=== PATIENT | female | born 1960 | race Caucasian/White ===

== ENCOUNTER → 2016-06-29 17:03 | Outpatient (CLI) | payer MEDICARE, BC ==
[2010-10-12 10:22] VITALS: BMI 27.2
== END | disposition home or self-care (01) ==
LOC: D.MAMMO 09:00
DX: R92.8 Other abnormal and inconclusive findings on diagnostic imaging of breast (principal)

== ENCOUNTER 2017-01-05 01:06 | Observation (INO) | payer MEDICARE, BC ==
[~2017-01-05] VITALS: Ht 154.9 cm; Wt 72.3 kg
--- NOTE | ~2017-01-05 | HEMODYNAMI ---
PATIENT:YE MYLES MEDICAL RECORD: [id number] : 60 LOCATION:[facility] D.2115 ADMISSION DATE: 01/05/17 Generatedon:01/05/20179:14 Patient name: YE MYLES Patient #: [id number] SSN: : 1960 Date of study: 01/05/2017 Page: Of Hemodynamic Procedure Report Patient Data Patient Demographics Procedure consent was obtained First Name: YE Gender: Female Last Name: SHAR : 1960 [facility] Initial: TR Age: 56 year(s) Patient #: [id number] Race: Unknown Additional ID: [id number] Contact details [address]: [address] [place] [address] rd State: [place] City: [place] Zip code: [address] Past Medical History Allergies Allergen Reaction Date Comments Reported Iodine 01/05/2017 Penicillins 01/05/2017 Sulfa drugs 01/05/2017 Admission Admission Data Admission Date: 01/05/2017 Admission Time: 2:29 Room #: D.2115 Lab Results Lab Result Date: 01/05/2017 Lab Result Time: 0:00 Biochemistry Name Units Result Min Max BUN mg/dl 10 --(-*--)-- 7 18 Creatinine mg/dl 0.9 --(-*--)-- 0.6 1.3 CBC Name Units Result Min Max Hemoglobin g/dl 13.7 --(*---)-- 13.5 17.5 Procedure Procedure Types Cath Procedure Diagnostic Procedure LHC LHC w/Coronaries Miscellaneous Procedures Moderate Sedation up to 15 minutes Procedure Description Procedure Date Procedure Date: 01/05/2017 Procedure Start Time: 9:05 Procedure End Time: 9:10 Procedure Staff Name Function Jaspal Artis MD Performing Physician Joshua Villalpando RN Nurse Dominique Henley RT Scrub Brad Fabian RT Monitor Procedure Data Cath Procedure Fluoroscopy Diagnostic fluoroscopy Total fluoroscopy Time: 0.7 time: 0.7 min min Diagnostic fluoroscopy Total fluoroscopy dose: 144 dose: 144 mGy mGy Contrast Material Contrast Material Type Amount (ml) Isovue 300 29 Entry Location Entry Primary Successful Side Size Upsize Upsize Entry Closure Foss ccessful Closure Location (Fr) 1 (Fr) 2 (Fr) Remarks Device Remarks Radial Right 6 Fr Mechanical artery Short Compression Diagnostic catheters Device Type Used For End Catheter Placement Diagnostic Terumo 5Fr LV Angiography [place] 110cm catheter Procedure Complications No complications Procedure Medications Medication Administration Route Dosage Oxygen NC 2 l/min Heparin Flush Bag added to field 2 bags (1000units/500ml NS) 0.9% NaCl I.V. 100 ml/hr Fentanyl I.V. 50 mcg Versed I.V. 1 mg Radial Cocktail added to field 1 syringe (Verapomil 2mg/Nitro 400mcg/Heparin 1500units) Fentanyl I.V. 50 mcg Versed I.V. 1 mg Radial Cocktail I.A. 1 syringe (Verapomil 2mg/Nitro 400mcg/Heparin 1500units) Fentanyl I.V. 50 mcg Hemodynamics Rest HGB: 13.7 (g/dl) Heart Rate: 80 (bpm) Snapshots Pre Cath Intra NCS Post Cath Vital Signs Time Heart Resp SPO2 NIBP (mmHg) Rhythm Pain Sedation Rate (ipm) (%) Status Level (bpm) 8:53:55 76 18 99 150/89(128) NSR 0 (11) 10(A) , No pain 8:58:09 81 17 99 157/90(121) NSR 0 (11) 10(A) , No pain 9:02:31 70 16 97 128/71(92) NSR 0 (11) 10(A) , No pain 9:06:47 80 17 96 118/61(91) NSR 0 (11) 9(A) , No pain 9:12:46 81 16 93 104/68(96) NSR 0 (11) 9(A) , No pain Medications Time Medication Route Dose Verified Delivered Reason Notes E ffectiveness by by 8:54:46 Oxygen NC 2 l/min Joshua Lewis Per Kwasi Villalpando RN physician RN 8:54:56 Heparin Flush added 2 bags Joshua Lewis used for Bag to Kwasi Villalpando dishwasher busser (1000units/500ml field RN NS) 8:55:06 0.9% NaCl I.V. 100 Joshua Lewis Per ml/hr Kwasi Villalpando RN physician RN 9:03:03 Fentanyl I.V. 50 mcg Joshua Lewis for sedation Kwasi Villalpando RN RN 9:03:09 Versed I.V. 1 mg Joshua Joshua for sedation Kwasi Villalpando RN RN 9:04:29 Radial Cocktail added 1 Joshua Lewis used for (Verapomil to syringe Kwasi Villalpando RN procedure 2mg/Nitro field RN 400mcg/Heparin 1500units) 9:05:15 Fentanyl I.V. 50 mcg Joshua Merchanty for sedation Kwasi Villalpando RN RN 9:05:20 Versed I.V. 1 mg Joshua Lewis for sedation Kwasi Villalpando RN RN 9:06:16 Radial Cocktail I.A. 1 Joshua Coperey for (Verapomil syringe Kwasi Artis MD vasodilation 2mg/Nitro RN 400mcg/Heparin 1500units) 9:07:11 Fentanyl I.V. 50 mcg Joshua Lewis for sedation Kwasi Villalpando RN silk screen etcher Log Time Note 8:30:23 Brad Fabian RT(R) sent for patient. Start room use. 8:30:24 Time tracking: Regular hours 8:30:29 Plan of Care:Hemodynamics will remain stable., Cardiac rhythm will remain stable., Comfort level will be maintained., Respiratory function will remain adequate., Patient/ family verbilizes understanding of procedure., Procedure tolerated without complication., Recovers from procedure without complications.. 8:45:48 Patient received from PCU to [facility] 2 Alert and oriented. Tansferred to table in Supine position. 8:45:49 Warm blankets applied, and inocente hugger turned on for patient comfort. 8:45:49 Correct patient and procedure confirmed by team. 8:45:50 Signed procedure consent form obtained from patient. 8:45:51 ECG and BP/O2 sat monitors applied to patient. 8:45:52 Full Disclosure recording started 8:52:00 Vital chart was started 8:54:46 Oxygen 2 l/min NC was administered by Joshua Villalpando RN; Per physician; 8:54:56 Heparin Flush Bag (1000units/500ml NS) 2 bags added to field was administered by Joshua Villalpando RN; used for procedure; 8:55:06 0.9% NaCl 100 ml/hr I.V. was administered by Joshua Villalpando RN; Per physician; 8:58:05 Baseline sample Acquired. 8:58:09 Rhythm: sinus rhythm 8:58:21 H&P Date Dictated: 01/05/2017 Within 30 days and on chart.. 8:58:21 Pre-procedure instructions explained to patient. 8:58:22 Pre-op teaching completed and patient verbalized understanding. 8:58:23 Family unavailable. 8:58:25 Patient NPO since Midnight. 8:58:32 Patient allergic to Iodine 8:58:42 Patient allergic to Penicillins 8:58:46 Patient allergic to Sulfa drugs 8:58:48 Is the patient allergic to Iodine/contrast media? No. 8:58:53 Is patient on blood thinner?No 8:58:54 Patient diabetic? Yes. 8:58:56 If diabetic: On Metformin? No 8:58:57 ----Pre-sedation anethsthesia assessment.---- 8:59:00 Previous problem with sedation/anesthesia? No ? 8:59:02 Snore? Yes 8:59:04 Sleep apnea? Yes 8:59:04 Deviated septum? No 8:59:06 Opens mouth fully? Yes 8:59:07 Sticks out tongue? Yes 8:59:10 Airway obstruction? No ? 8:59:15 Dentures? Yes upper in tight 8:59:25 Pre procedure: right dorsailis pedis pulse 1+ Palpable, but thready & weak; easily obliterated 8:59:28 Modified Jacek's test Ulnar > 7 seconds. 8:59:30 Patient pain scale 0/10 ?. 8:59:35 IV patent on arrival in right hand with 0.9% NaCl at 10ml/hr. 9:01:45 Lab Result : BUN 10 mg/dl 9:01:45 Lab Result : Creatinine 0.9 mg/dl 9:01:45 Lab Result : Hemoglobin 13.7 g/dl 9:01:47 Lab results completed and on chart. 9:01:50 Right Radial & Right Groin area was prepped with chlora-prep and draped in sterile fashion 9:01:51 Alarms reviewed by R. N. 9:01:51 Sharps counted by scrub and verified by R.N. 9:01:52 --------ALL STOP TIME OUT------ 9:01:52 Final Timeout: patient, procedure, and site verified with staff and physician. All members of the team are in agreement. 9:01:54 Right Radial & Right Groin site verified by team. 9:01:56 Physical assessment completed. ASA score P 2 - A patient with mild systemic disease as per Jaspal Artis MD. 9:02:00 Sedation plan: IV Moderate Sedation Versed, Fentanyl 9:02:24 Use device set Radial Dx 9:02:25 Acist Syringe opened to sterile field. 9:02:25 Medline Cath Pack opened to sterile field. 9:02:26 Bag Decanter opened to sterile field. 9:02:26 Terumo 6Fr Slender Glidesheath opened to sterile field. 9:02:27 St Dutch 260cm J .035 wire opened to sterile field. 9:02:27 Acist Hand Control opened to sterile field. 9:02:27 Acist Manifold opened to sterile field. 9:02:28 Tegaderm 4 x 4 opened to sterile field. 9:02:28 MBrace Wrist Support opened to sterile field. 9:03:03 Fentanyl 50 mcg I.V. was administered by Joshua Villalpando RN; for sedation; 9:03:09 Versed 1 mg I.V. was administered by Joshua Villalpando RN; for sedation; 9:03:20 Zero performed for pressure channel P1 9:04:29 Radial Cocktail (Verapomil 2mg/Nitro 400mcg/Heparin 1500units) 1 syringe added to field was administered by Joshua Villalpando RN; used for procedure; 9:05:15 Fentanyl 50 mcg I.V. was administered by Joshua Villalpando RN; for sedation; 9:05:20 Versed 1 mg I.V. was administered by Joshua Villalpando RN; for sedation; 9:05:34 Procedure started. 9:05:51 Local anesthetic to right radial artery with Lidocaine 2% by Jaspal Artis MD.INITIAL ACCESS ONLY 9:05:59 A 6 Fr Short sheath was inserted into the Right Radial artery 9:06:16 Radial Cocktail (Verapomil 2mg/Nitro 400mcg/Heparin 1500units) 1 syringe I.A. was administered by Jaspal Artis MD; for vasodilation; 9:06:57 IV Extension Set opened to sterile field. 9:07:06 A Diagnostic Terumo 5Fr [place] 110cm catheter was advanced over the wire and used for LV Angiography. 9:07:11 Fentanyl 50 mcg I.V. was administered by Joshua Villalpando RN; for sedation; 9:07:11 LV angiography performed. 9:07:13 LV gram done using ORTIZ 9:07:18 Injector settings: Ml/sec: 5, Volume: 15, 9:07:37 EF : 60 % 9:07:39 LCA angiography performed. 9:08:13 RCA angiography performed. 9:08:15 Catheter removed. 9:08:27 Terumo TR Band Standard opened to sterile field. 9:08:38 Contrast amount:Isovue 300 29ml. 9:08:44 Sheath removed intact; hemostasis achieved with Mechanical Compression to the Right Radial artery. 9:08:45 Procedure ended.(Physican Out) 9:08:58 Fluoroscopy time 00.70 minutes. 9:09:02 Fluoroscopy dose: 144 mGy 9:: Flurop Dose total: 144 9:09:07 Sharps counted by scrub and verified by R.N. 9:09:09 TR band inflated with 10cc of air. 9:09:18 Post right radial artery:stable 9:09:19 Post Procedure Pulses reassessed and unchanged 9:09:22 Post procedure rhythm: sinus rhythm 9:09:23 Post procedure instruction explained to patient.Patient verbalizes understanding. 9:09:35 Procedure type changed to Cath procedure, Diagnostic procedure, LHC, LHC w/Coronaries, Miscellaneous Procedures, Moderate Sedation up to 15 minutes 9:09:39 Procedure and supply charges have been captured, reviewed, submitted and are correct. 9:10:00 Procedure Complication : No complications 9:10:02 Vital chart was stopped 9:10:03 See physician's report for complete and final results. 9:10:07 Report given to PCU. 9:10:14 Patient transfered to PCU with Stretcher. 9:10:16 Procedure ended. 9:10:16 Full Disclosure recording stopped 9:10:20 End room use (Document Last) 9:11:50 Vital chart was started 9:14:28 Vital chart was stopped Device Usage Item Name Manufacture Quantity Catalog Hospital Part Current Minimal Lot# / Number Charge Number Stock Stock Serial# Code Acist Acist 1 23168 536359 426858 165274 20 Syringe Medical Systems Inc Medline Cardinal 1 [id number] 223156 82034 946647 5 Cath Pack Health Bag Microtek 1 2002S 342437 51590 870682 5 Decanter Medical Inc. Terumo 6Fr Terumo 1 [id number] 618889 189297 245120 [address] St Dutch 1 976302 990897 389036 864409 30 260cm J .035 wire Acist Hand Acist 1 09415 752769 787170 289380 5 Control Medical Systems Inc Acist Acist 1 88960 320717 625758 438349 5 Manifold Medical Systems Inc Tegaderm 4 3M 1 1626W 998550 237548 779395 5 x 4 MBrace Advanced 1 140-0250-00 871846 24826 725107 5 Wrist Vascular Support Dynamics IV Hospira 1 50902-90 994295 14697 045246 5 Extension Set Diagnostic Terumo 1 04-0385 378642 798799 481395 5 Terumo 5Fr [place] 110cm catheter Terumo TR Terumo 1 [id number]-[id number] 129723 338603 351657 40 Band Standard Signature Audit [place] Time Signature Unsigned Intra-Procedure 01/05/2017 Brad Fabian 9:14:24 AM RT(R) Signatures Monitor : Brad Fabian RT Signature : Date : Time : [facility] [address] [place] [address]
[2017-01-05 01:55] LABS: BASOPHILS 0.3 % (0-2); EOSINOPHILS 3.2 % (0-7); HEMATOCRIT 41.3 % (36.0-48.0); HEMOGLOBIN 13.7 g/dL (12-16); IMMATURE GRANULOCYTES 0.3 % (0-5); LYMPHOCYTES 28.4 % (15-50); MCH 30.2 pg (26.0-34.0); MCHC 33.2 g/dL (31.0-37.0); MEAN PLATELET VOLUME 9.9 fL (7.4-10.4); MONOCYTES 8.1 % (2-11); NEUTROPHILS 59.7 % (40-80); PLATELET COUNT 262 10x3/uL (130-400); RBC 4.54 10x6/uL (4.00-5.40); RDW 13.1 % (11.5-14.5); WBC 7.1 10x3/uL (4.8-10.8)
[2017-01-05 02:10] LABS: ALBUMIN 3.3 g/dL (3.4-5.0); ALKALINE PHOSPHATASE 101 U/L (46-116); ALT (SGPT) 50 U/L (10-68); CALC OSMOLALITY 283 mosm/kg (275-300); CALCIUM 8.6 mg/dL (8.5-10.1); CARBON DIOXIDE 27.3 mmol/L (21.0-32.0); CHLORIDE - SERUM 106 mmol/L (98-107); CREATININE - SERUM 0.9 mg/dL (0.6-1.3); GLUCOSE 134 mg/dL (74-106); POTASSIUM - SERUM 3.3 mmol/L (3.5-5.1); PROTEIN - SERUM 6.3 g/dL (6.4-8.2); SODIUM 142 mmol/L (136-145); UREA NITROGEN 10 mg/dL (7-18); eGFR NON AFRICAN AMERICAN 69 mL/min (90-120)
[2017-01-05 02:20] LABS: CHOL - HDL RATIO 3.2 ratio (2.3-4.1); CHOLESTEROL, TOTAL 159 mg/dL (0-200); CKMB 0.7 U/L (0.0-3.6); CREATINE KINASE 125 UL (21-215); HDL CHOLESTEROL 50 mg/dL (32-96); LDL CHOLESTEROL 85 mg/dL (0-100); LDL-HDL RATIO 1.7 ratio (1.5-3.5); TRIGLYCERIDE 122 mg/dL (30-200); TROPONIN-I < 0.017 ng/mL (0.000-0.060)
[2017-01-05 04:00] VITALS: BP 143/80; Ht 154.9 cm; Wt 72.3 kg
[2017-01-05] MEDS ORDERED: SEROQUEL100 MG PO (04:15)
[2017-01-05] MEDS ORDERED: RESTORIL15 MG PO (04:16)
[2017-01-05] MEDS ORDERED: DESERYL100 MG PO (04:16)
[2017-01-05] MEDS ORDERED: TIMOPTIC 0.5 % O5 ML EACH EYE (04:17)
[2017-01-05] MEDS ORDERED: ALPHAGAN P 0.155 ML EACH EYE (04:18)
--- NOTE | 2017-01-05 04:22 | NUR ---
ADMISSION COMPLETE PER FLOWSHEETS. VOICES NO CO AT TIME. WALLET TAKEN BY FRIEND AND PLACED IN VEHICLE.
--- NOTE | 2017-01-05 05:07 | NUR ---
WATCHING TV. VOICES NO CO AT TIME.
--- NOTE | 2017-01-05 05:57 | NUR ---
WATCHING TV VOICES NO CO AT TIME.
[2017-01-05 08:17] VITALS: BP 103/62
--- NOTE | 2017-01-05 08:38 | NUR ---
CONSENTS SIGNED. PRE-OPS GIVEN. TO BENCH SCIENTIST BY BED.
[2017-01-05 09:02] LABS: CALC OSMOLALITY 284 mosm/kg (275-300); CALCIUM 8.4 mg/dL (8.5-10.1); CARBON DIOXIDE 23.9 mmol/L (21.0-32.0); CHLORIDE - SERUM 107 mmol/L (98-107); CREATININE - SERUM 0.8 mg/dL (0.6-1.3); GLUCOSE 116 mg/dL (74-106); SODIUM 143 mmol/L (136-145); UREA NITROGEN 9 mg/dL (7-18); eGFR NON AFRICAN AMERICAN 78 mL/min (90-120)
[2017-01-05 09:06] LABS: POTASSIUM - SERUM 4.2 mmol/L (3.5-5.1)
[2017-01-05 09:21] LABS: BASOPHILS 0.4 % (0-2); EOSINOPHILS 2.7 % (0-7); HEMATOCRIT 40.4 % (36.0-48.0); HEMOGLOBIN 13.4 g/dL (12-16); IMMATURE GRANULOCYTES 0.1 % (0-5); LYMPHOCYTES 25.4 % (15-50); MCH 29.8 pg (26.0-34.0); MCHC 33.2 g/dL (31.0-37.0); MEAN PLATELET VOLUME 10.4 fL (7.4-10.4); MONOCYTES 7.3 % (2-11); NEUTROPHILS 64.1 % (40-80); PLATELET COUNT 270 10x3/uL (130-400); RBC 4.49 10x6/uL (4.00-5.40); RDW 13.2 % (11.5-14.5); WBC 7.7 10x3/uL (4.8-10.8)
--- NOTE | 2017-01-05 09:33 | NUR ---
BACK FRON TUNNEL MUCKER. VS WNL. RIGHT WRIST STABLE WITH TR BAND INTACT. WILL MONITOR.
--- NOTE | 2017-01-05 14:21 | NUR ---
TR BAND DCD WITHOUT BLEEDING OR HEMATOMA NOTED. IV AND TELEMETRY DCD. DC PLANS GIVEN. UNDERSTANDING VOICED.
--- NOTE | 2017-01-06 11:24 | OP ---
PATIENT NAME: YE MYLES MEDICAL RECORD: [id number] :60 LOCATION:D.M2 D.2115 ADMISSION DATE:01/05/17 SURGEON: JOSR POWELL MD DATE OF OPERATION: 01/05/2017 PROCEDURES: 1. Left heart catheterization. 2. Selective coronary angiography. 3. Left ventriculogram. INDICATION: Chest pain. PROCEDURE IN DETAIL: After informed consent was obtained and after a detailed explanation of risks, benefits as well as alternative therapies, the patient elected to proceed with angiogram and heart catheterization. The right radial area was prepped and draped in normal sterile fashion. Right radial artery was cannulated via modified Seldinger technique with placement of 5-Welsh sheath. All catheters exchanged through this sheath. FINDINGS: Left ventriculogram was performed in the standard 30-degree ORTIZ view reveals good cardiac wall motion throughout all segments. Overall ejection fraction estimated at 60%. SELECTIVE CORONARY ANGIOGRAPHY: Left main, left anterior descending, left circumflex, and right coronary artery are all smooth-walled vessels with no angiographic evidence of coronary artery disease. OVERALL IMPRESSION: 1. No angiographic evidence of coronary artery disease. 2. Normal left heart pressures. 3. Normal left ventricular systolic function. Chest pain is noncardiac in etiology. No further cardiac workup needs to be ascertained. TRANSINT:[id number] Voice Confirmation ID: [id number] DOCUMENT ID: [id number] JOSR POWELL MD at 1124 CC: [id number] DICTATION DATE: 01/05/17 0911 GRADUATE FELLOW: 01/05/17 1113 DIS IN 01/05/17 [address] [place] [address]
--- NOTE | 2017-01-06 11:24 | DS ---
PATIENT:YE MYLES :60 MEDICAL RECORD: [id number] DISCHARGE SUMMARY ADMISSION DATE: 01/05/17 DISCHARGE DATE: 01/05/17 DISCHARGE DIAGNOSES: 1. Chest pain of unknown etiology. 2. Normal cardiac catheterization this admission. HOSPITAL COURSE: Mrs. Myles presents with chest pain; however, cardiac catheterization is normal. Discharged home to follow up with her primary care physician for noncardiac chest pain workup. TRANSINT:[id number] Voice Confirmation ID: [id number] DOCUMENT ID: [id number] JOSR POWELL MD at 1124 CC: [id number] DICTATION DATE: 01/05/17 0910 GROUND INSTRUCTOR BASIC: 01/06/17 0203 DIS IN 01/05/17 [address] [place] [address]
== END 2017-01-05 14:29 | disposition home or self-care (01) ==
LOC: D.ER 01:06 → D.M2 02:29 → OBSVTIME 02:29 → D.M2 02:29
PROVIDERS: Emergency Medicine; ADMIT Internal Medicine Interventional Cardiology
DX: R07.89 Other chest pain (principal); I10 Essential (primary) hypertension; F41.9 Anxiety disorder, unspecified; F31.9 Bipolar disorder, unspecified; H40.9 Unspecified glaucoma

== ENCOUNTER → 2017-02-01 12:24 | Outpatient (CLI) | payer MEDICARE, BC ==
[2017-01-05 04:00] VITALS: BMI 30.1
[~2017-02-01 12:24] MED LIST: ALPHAGAN P 0.155 ML EACH EYE; DESERYL100 MG PO; RESTORIL15 MG PO; SEROQUEL100 MG PO; TIMOPTIC 0.5 % O5 ML EACH EYE
== END | disposition home or self-care (01) ==
LOC: D.RAD 01-26 13:00
DX: R13.10 Dysphagia, unspecified (principal)

== ENCOUNTER → 2017-06-22 12:50 | Outpatient (CLI) | payer MEDICARE, BC ==
[2017-01-05 04:00] VITALS: BMI 30.1
== END | disposition home or self-care (01) ==
LOC: D.CT 12:50
DX: S52.131A Displaced fracture of neck of right radius, initial encounter for closed fracture (principal); X58.XXXA Exposure to other specified factors, initial encounter; Y93.89 Activity, other specified; Y92.019 Unspecified place in single-family (private) house as the place of occurrence of the external cause

== ENCOUNTER 2017-12-27 21:47 | Emergency (ER) | payer MEDICARE, BC ==
[~2017-12-27] VITALS: Ht 154.9 cm; Wt 72.7 kg
[2017-12-27 21:53] VITALS: BP 135/86; Ht 154.9 cm; Wt 72.7 kg
== END 2017-12-27 23:03 | disposition left against medical advice (07) ==
LOC: D.ER 21:47
DX: Z02.9 Encounter for administrative examinations, unspecified (principal)

== ENCOUNTER → 2018-10-02 16:34 | Outpatient (CLI) | payer MEDICARE, BC ==
[2017-12-27 21:53] VITALS: BMI 30.3
== END | disposition home or self-care (01) ==
LOC: D.MAMMO 08:00
PROVIDERS: ATTEND Family Medicine
DX: Z12.31 Encounter for screening mammogram for malignant neoplasm of breast (principal)

== ENCOUNTER 2019-07-30 13:16 | Inpatient (IN) | payer MEDICARE, BC ==
[~2019-07-30] VITALS: Ht 154.9 cm; Wt 72.7 kg
[~2019-07-30 13:16] MED LIST changes: -DESERYL100 MG PO; +TRAZODONE HCL150 MG
[2019-08-06] MEDS ORDERED: XALATAN 0.0052.5 ML EACH EYE (14:27)
[2019-08-06] MEDS ORDERED: KLONOPIN1 MG PO (14:28)
[2019-08-06] MEDS ORDERED: HYDROCODON-ACE1 EAC7 PO (14:31)
[2019-08-06] MEDS ORDERED: TESSALON PERLE100 MG PO (14:32)
[2019-08-07] MEDS ORDERED: VOLTAREN100 GM TOPICAL (11:11)
[2019-08-07 11:16] LABS: BASOPHILS 0.3 % (0-2); EOSINOPHILS 0.7 % (0-7); HEMATOCRIT 45.7 % (36.0-48.0); IMMATURE GRANULOCYTES 0.3 % (0-5); LYMPHOCYTES 11.1 % (15-50); MCH 29.8 pg (26.0-34.0); MCHC 32.8 g/dL (31.0-37.0); MCV 90.7 fL (80.0-100.0); MONOCYTES 7.1 % (2-11); NEUTROPHILS 80.5 % (40-80); PLATELET COUNT 277 10x3/uL (130-400); RBC 5.04 10x6/uL (4.00-5.40); RDW 13.3 % (11.5-14.5); WBC 15.6 10x3/uL (4.8-10.8)
[2019-08-07 11:28] LABS: ANION GAP 9.1 mmol/L (8-16); CALCIUM 8.7 mg/dL (8.5-10.1); CARBON DIOXIDE 31.5 mmol/L (21.0-32.0); CREATININE - SERUM 1.1 mg/dL (0.6-1.3); POTASSIUM - SERUM 3.6 mmol/L (3.5-5.1)
[2019-08-07 12:04] LABS: APTT 30.4 SECONDS (22.8-39.4)
[2019-08-07 12:07] LABS: PROTIME 13.1 SECONDS (11.6-15.0)
[2019-08-07 12:39] LABS: BILIRUBIN NEGATIVE (NEGATIVE); GLUCOSE NEGATIVE (NEGATIVE); KETONE NEGATIVE (NEGATIVE); NITRITE NEGATIVE (NEGATIVE); UROBILINOGEN NORMAL (NORMAL)
[2019-08-07 12:40] LABS: BACTERIA FEW /hpf (NEGATIVE); EPITHELIAL CELLS 0-5 /hpf (0-5); RED CELLS - URINE 0-5 /hpf (0-5)
[2019-08-13] VITALS (14 sets, daily range): BP systolic 95–146; BP diastolic 50–81; Ht 154.9 cm; Wt 72.7 kg
[2019-08-13] MEDS ORDERED: RESTORIL15 MG (06:52)
[2019-08-13] MEDS ORDERED: CIPRO500 MG PO (06:53)
--- NOTE | 2019-08-13 07:23 | NUR ---
ACCORDING TO THE SUICIDE ASSESSMENT SCREEN THE PATIENT SCORES LOW AND DOES NOT REQUIRE A 1:1 OBSERVATION. SUICDE RESOURCE FLYER PROVIDED.
[2019-08-13 08:30] LABS: SPECIFIC GRAVITY 1.015 (1.005-1.020)
[2019-08-13 08:31] LABS: BACTERIA FEW /hpf (NEGATIVE); BILIRUBIN NEGATIVE (NEGATIVE); EPITHELIAL CELLS 0-5 /hpf (0-5); GLUCOSE NEGATIVE (NEGATIVE); KETONE NEGATIVE (NEGATIVE); NITRITE NEGATIVE (NEGATIVE); RED CELLS - URINE 0-5 /hpf (0-5); UROBILINOGEN NORMAL (NORMAL); WHITE CELLS - URINE RARE /hpf (NEGATIVE)
--- NOTE | 2019-08-13 11:08 | NUR ---
PT PLACED ON BEDPAN PER HER REQUEST
--- NOTE | 2019-08-13 11:30 | NUR ---
RECEIVED TO ROOM 1213 VIA BED FROM PACU. ROUSES TO VERBAL STIMULATION. ANSWERS QUESTIONS APPROPRIATELY. DRESSING TO RIGHT KNEE DRY AND INTACT. AT BEDSIDE. DENIES NEEDS.
--- NOTE | 2019-08-13 14:16 | MORECARE ---
CASE MANAGEMENT DISCHARGE SUMMARY PATIENT: YE TRAN UNIT: [id number] ADM DATE: 08/13/19 AGE: 58 : 60 SEX: F ROOM/BED: D.1213 AUTHOR: TAVON,DOC PHYSICIAN: REFERRING PHYSICIAN: AGUSTINA CUEVA DO DATE OF SERVICE: 08/13/19 Discharge Plan Patient Name: YE TRAN Facility: [facility]:[place] : 1960 Planned Disposition: Outpatient PT\OT Anticipated Discharge Date: Discharge Date: Expected LOS: Initial Reviewer: [email or web address] Initial Review Date: 08/13/2019 Generated: 08/13/19 3:16 pm Comments DCP- Discharge Planning Updated by [email or web address]: Rosario Beard on 08/13/19 1:[address] CM met with patient to discuss initial discharge planning. Patient is in agreement to proceed with the assessment with family members present. Patient reports that she lives at home independently with her spouse. Patient is alert/oriented. Stairs/steps: 5 w/rails. PCP: Dr. Lord. Pharmacy: [facility]. Patient states she has been able to obtain all of her prescribed medications. HHS: No. DME: Antony NESS BSC. Patient gives permission to speak with family members/care givers. Emergency contact: Hamzah Tran (spouse) [phone]. Patient is Independent with all ADL's, medication management 2ND PRESSMAN. CM discussed the availability of HH, Rehab, DME services. Patient plans to use [facility] upon DC. Patient states family members will drive her to and from therapy. Patient's ueiyqv-wd-tju lives next door and plans to assist when patient's spouse is working. Patient feels safe returning to previous environment. Patient denies being hospitalized within the past 30 days. Patient denies the use of community resources 2ND PRESSMAN. Transportation at time of discharge: Hamzah Tran (spouse) [phone]. CM will assist with any other DC needs/plans. DCPIA - Discharge Planning Initial Assessment Updated by [email or web address]: Rosario Beard on 08/13/19 2:10 pm * Is the patient Alert and Oriented? Yes * How many steps to enter\exit or inside your home? 5 w/rail * PCP Dr. lord * Pharmacy [facility]. * Preadmission Environment Home with Family * ADLs Independent * Equipment Bedside Commode * Other Equipment BSC, Walker, CPM * List name and contact numbers for known caregivers / representatives who currently or will assist patient after discharge: Hamzah tran (spouse) [phone] Janice Tran (s-I-l) [phone] * Verbal permission to speak to the caregivers and representatives has been obtained from the patient. Yes * Community resources currently utilized None * Please name any agencies selected above. [facility] * Additional services required to return to the preadmission environment? Yes * Can the patient safely return to the preadmission environment? Yes * Has this patient been hospitalized within the prior 30 days at any hospital? No Patient Name: YE TRAN Page [phone] at 1416 All edits/amendments must be made on the electronic document DICTATION DATE: 08/13/19 1416 HVAC SERVICE MANAGER: SATNAM 08/13/19 1416 RPT#: [id number] DC DATE: STATUS: ADM IN [facility] [address] [place] [address] END OF REPORT
--- NOTE | 2019-08-13 17:17 | MORECARE ---
CASE MANAGEMENT DISCHARGE SUMMARY PATIENT: YE TRAN UNIT: [id number] ADM DATE: 08/13/19 AGE: 58 : 60 SEX: F ROOM/BED: D.1213 AUTHOR: TAVON,SANDRA PHYSICIAN: REFERRING PHYSICIAN: AGUSTINA CUEVA DO DATE OF SERVICE: 08/13/19 Discharge Plan Patient Name: YE TRAN Facility: [facility]:[place] : 1960 Planned Disposition: Outpatient PT\OT Anticipated Discharge Date: Discharge Date: Expected LOS: Initial Reviewer: [email or web address] Initial Review Date: 08/13/2019 Generated: 08/13/19 6:16 pm Comments DCP- Discharge Planning Updated by [email or web address]: Rosario Beard on 08/13/19 4:[address] CM contacted Miranda with [facility], patient's appointment is Tuesday 08/15 @0930 am. Copy given to patient. DCP- Discharge Planning Updated by [email or web address]: Rosario Beard on 08/13/19 1:[address] CM met with patient to discuss initial discharge planning. Patient is in agreement to proceed with the assessment with family members present. Patient reports that she lives at home independently with her spouse. Patient is alert/oriented. Stairs/steps: 5 w/rails. PCP: Dr. Lord. Pharmacy: [facility]. Patient states she has been able to obtain all of her prescribed medications. HHS: No. DME: [facility], Antony, BSC. Patient gives permission to speak with family members/care givers. Emergency contact: Hamzah Tran (spouse) [phone]. 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 CM discussed the availability of HH, Rehab, DME services. Patient plans to use [facility] upon DC. Patient states family members will drive her to and from therapy. Patient's yyzhlc-gs-mdd lives next door and plans to assist when patient's spouse is working. Patient feels safe returning to previous environment. Patient denies being hospitalized within the past 30 days. 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 Transportation at time of discharge: Hamzah Tran (spouse) [phone]. CM will assist with any other DC needs/plans. DCPIA - Discharge Planning Initial Assessment Updated by [email or web address]: Rosario Beard on 08/13/19 2:10 pm * Is the patient Alert and Oriented? Yes * How many steps to enter\exit or inside your home? 5 w/rail * PCP Dr. lord * Pharmacy [facility]. * Preadmission Environment Home with Family * ADLs Independent * Equipment Bedside Commode * Other Equipment BSC, Walker, CPM * List name and contact numbers for known caregivers / representatives who currently or will assist patient after discharge: Hamzah tran (spouse) [phone] Janice Vinh (s-I-l) [phone] * Verbal permission to speak to the caregivers and representatives has been obtained from the patient. Yes * Community resources currently utilized None * Please name any agencies selected above. [facility] * Additional services required to return to the preadmission environment? Yes * Can the patient safely return to the preadmission environment? Yes * Has this patient been hospitalized within the prior 30 days at any hospital? No Coverage Notice Reviewer: [email or web address] - Rosario Beard Notice Issued Date-Time: 08/13/2019 17:11 Notice Type: Patient Choice Letter Notice Delivered To: Family Member Relationship to Patient: Spouse Salesperson [employer] Name: Hamzah Tran Delivery Method: HAND - Hand Delivered Jeanie Days: Prior Verbal Notification: Recipient Understood Notice: Yes Recipient Signature: Yes Med Rec Note Co-signed by Attending: Coverage Notice Comment: Patient Choice for [facility]. Appointment Tuesday 08/15 @0930. Last DP export: 08/13/19 1:16 pm Patient Name: YE TRAN Page 23071 at 1717 All edits/amendments must be made on the electronic document DICTATION DATE: 08/13/191715 KINESIOLOGY INTERNSHIP: SATNAM 08/13/191715 RPT#: [id number] DC DATE: STATUS: ADM IN [facility] [address] [place] [address] END OF REPORT
--- NOTE | 2019-08-13 18:21 | NUR ---
UP TO BR WITH ONE PERSON MIN ASSIST. VOIDED WITHOUT DIFFICULTY. REQUESTED AND GIVEN 5 MG OXY PO FOR C/O RIGHT KNEE PAIN LEVEL 10. WILL MONITOR. NO CHANGES NOTED. DENIES NEEDS. AT BEDSIDE.
--- NOTE | 2019-08-13 19:00 | NUR ---
ASSISTED PATIENT TO RESTROOM. PATIENT VOIDED. ASSISTED PATIENT BACK TO BED AND ON CPM. PATIENT DENIES OTHER NEEDS AT THIS TIME. BED IN LOWEST POSITION AND CALL LIGHT WITHIN REACH. ENCOURAGED THE PATIENT TO CALL IF SHE HAS NEEDS. WILL CONTINUE TO MONITOR.
--- NOTE | 2019-08-13 20:09 | NUR ---
ADMINISTERED MEDS PER ORDERS. PATIENT DENIES OTHER NEEDS AT THIS TIME. AT BEDSIDE. WILL CONTINUE TO MONITOR.
--- NOTE | 2019-08-13 22:17 | NUR ---
ASSISTED PATIENT TO AND FROM RESTROOM WITH WALKER. PATIENT RESTING IN BED AND DENIES OTHER NEEDS AT THIS TIME.
--- NOTE | 2019-08-13 23:04 | NUR ---
ASSISTED PATIENT TO AND FROM WITH WALKER. PATIENT VOIDED. PATIENT DENIES OTHER NEEDS AT THIS TIME.
--- NOTE | 2019-08-14 00:37 | NUR ---
PATIENT RESTING IN BED WITH EYES CLOSED AND NO S/S OF DISTRESS. BED IN LOWEST POSITION AND CALL LIGHT WITHIN REACH. WILL CONTINUE TO MONITOR.
--- NOTE | 2019-08-14 00:38 | NUR ---
I have reviewed this patient and I concur with the Shift Assessment completed by the Licensed Practical Nurse today this shift.
--- NOTE | 2019-08-14 00:54 | NUR ---
ASSISTED PATIENT TO AND FROM . PATIENT VOIDED AND DENIES OTHER NEEDS AT THIS TIME. WILL CONTINUE TO MONITOR.
[2019-08-14 03:17] VITALS: BP 109/55
--- NOTE | 2019-08-14 03:20 | NUR ---
ASSISTED PATIENT TO AND FROM . PATIENT NAUSEOUS AND VOMITING WHEN SHE GOT BACK TO BED. ADMINISTERED ZOFRAN.
--- NOTE | 2019-08-14 05:05 | NUR ---
PLACED PATIENT ON CPM MACHINE TO RIGHT KNEE
--- NOTE | 2019-08-14 08:34 | OP ---
PATIENT NAME: YE MYLES MEDICAL RECORD: [id number] :60 LOCATION:D. D.1213 ADMISSION DATE:08/13/19 SURGEON: YANIV CUEVA DO DATE OF OPERATION: 08/13/2019 PROCEDURE PERFORMED: Right total knee arthroplasty. PREOPERATIVE DIAGNOSIS: Right knee osteoarthritis. POSTOPERATIVE DIAGNOSIS: Right knee osteoarthritis. INDICATIONS: Ms. Myles is a 58-year-old female who has had right knee pain for quite some time. She has tried all manner of nonoperative treatment including injections and physical therapy to no avail. She was tired dealing with pain as it is affecting his activities of daily living. She wanted something done surgically. I informed her that total knee would work. She has tried everything else that she would be a risk for infection, bleeding, damage to nerves and vessels, need for further surgery, continued pain, loss of motion of the knee, blood clots, and even and she signed a consent as well as failure of implants and the fracture and she signed a consent. SURGEON: Yaniv Cueva DO SANDWICH PEDDLER: Darrin Hardy, certified surgical assistant product manager. He assisted with closing as well as retraction. The patient received a block by anesthesia in the preoperative area. She was taken to the OR suite, laid in supine position, given 900 mg clindamycin. She was then sedated and LMA was placed. She was prepped and draped in a sterile fashion. A timeout was performed, everyone was in agreement with the correct side, site, patient and procedure. We then began by marking out the incision and covering with non-ionized coverage of the skin with plastic sterilized and placed Ioban. We used 10 blade scalpel for skin dissection down to the capsule. A medial parapatellar approach was then used to enter the knee joint through the capsule. Patella was everted. Part of the fat pad was removed and patella was milled down to fit prosthesis. The distal femur was then entered and the ACL had been removed. The distal femur was entered with a drill. Distal femur guide was put on and the distal femur was cut through the guide and then cut through the proximal tibia as well through the guide and excess bone was removed and incised. I then brought the knee to extension and we removed the menisci and coagulated any bleeding that was in the knee with the Aquamantys. We then sized the femur to be 60. A 4-in-1 cutting block was then used to cut after the Dhruv wing was used to ensure there was no notching leave the 60 and cut through the guide and excess bone was removed and the trial was put on and tibia floated in and arranged, the rotation was marked. We then drilled the lug holes in the femur and holes for the patellar implant. After that, the tibia was exposed and sized to a 67. The 67 was reamed and then punched and the extra holes were put in the tibia for the cement. Cement was then prepped and cement was put in the tibia and all the implant impacted in place. Excess cement was removed. We then impacted the femur on, put a 10 poly in between and put in extension and used a cement, irrigated the patella, and then used cement on the patella and on the implant and squeezed it and excess cement was removed from that and held into place while the cement dried. We irrigated the knee with more than a liter of normal saline, did not use the iodine solution due to her ALLERGY TO IODINE. After the cement had dried, a try to slope, could not put the 12 standard poly OPERATIVE REPORT [id number] YE MYLES in, although 12 trial fit well, we put a 10 standard poly and after that, locked it into place using locking mechanism and then put in tobramycin and vancomycin powder as well as Yuri powder and closed the capsule with #2 Ethibond in a ctclar-fo-kquku fashion and the skin with 2-0 Vicryl interrupted fashion. ZipLine placed on the knee. Adaptic, 4 x 4s, ABD, Webril, Clifton wrap, and AIDAN hose stockings were placed up to the knee. She was then awakened and taken to recovery in stable condition. Blood loss was approximately 250 mL. COMPLICATIONS: None. TRANSINT:[id number] Voice Confirmation ID: [id number] DOCUMENT ID: [id number] YANIV CUEVA DO at 0834 CC: [id number] DICTATION DATE: 08/13/19 1018 ACTIVATED SLUDGE OPERATOR: 08/13/19 1853 ADM IN [facility] [address] [place] [address]
[2019-08-14 09:02] LABS: HEMATOCRIT 34.8 % (36.0-48.0); HEMOGLOBIN 11.2 g/dL (12-16); MCHC 32.2 g/dL (31.0-37.0); MCV 90.2 fL (80.0-100.0); MEAN PLATELET VOLUME 9.9 fL (7.4-10.4); RBC 3.86 10x6/uL (4.00-5.40); RDW 13.1 % (11.5-14.5)
[2019-08-14 09:24] LABS: WBC 15.1 10x3/uL (4.8-10.8)
[2019-08-14 09:38] VITALS: BP 132/57
--- NOTE | 2019-08-14 09:51 | NUR ---
PT ALERT X 4. BREATH SOUNDS CLEAR BILAT. IV TO LEFT HAND, PATENT, DRESSING CDI. DRESSING TO RIGHT KNEE CDI. AIDAN HOSE TO RIGHT LEG AND USING AT HOME SCD'S. PT REPORTING PAIN OF 8/10, BP IMPROVED AND MEDICATED PER ORDERS, WILL MONITOR. BED LOW, CALL LIGHT IN REACH. NO OTHER NEEDS AT THIS TIME.
[2019-08-14 11:06] VITALS: BP 116/56
--- NOTE | 2019-08-14 14:36 | MORECARE ---
CASE MANAGEMENT DISCHARGE SUMMARY PATIENT: YE TRAN UNIT: [id number] ADM DATE: 08/13/19 AGE: 58 : 60 SEX: F ROOM/BED: D.1213 AUTHOR: SANDRA MONTES DE OCA PHYSICIAN: REFERRING PHYSICIAN: AGUSTINA CUEVA DO DATE OF SERVICE: 08/14/19 Discharge Plan Patient Name: YE TRAN Facility: [facility]:[place] : 1960 Planned Disposition: Outpatient PT\OT Anticipated Discharge Date: Discharge Date: Expected LOS: Initial Reviewer: [email or web address] Initial Review Date: 08/13/2019 Generated: 08/14/19 3:36 pm DCP- Discharge Planning Updated by [email or web address]: Rosario Beard on 08/13/19 4:[address] CM contacted Miranda with [facility], patient's appointment is Tuesday 08/15 @0930 am. Copy given to patient. DCP- Discharge Planning Updated by [email or web address]: Rosario Beard on 08/13/19 1:[address] CM met with patient to discuss initial discharge planning. Patient is in agreement to proceed with the assessment with family members present. Patient reports that she lives at home independently with her spouse. Patient is alert/oriented. Stairs/steps: 5 w/rails. PCP: Dr. Lord. Pharmacy: [facility]. Patient states she has been able to obtain all of her prescribed medications. HHS: No. DME: [facility]y [facility], [place]. Patient gives permission to speak with family members/care givers. Emergency contact: Hamzah Tran (spouse) [phone]. 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 CM discussed the availability of HH, Rehab, DME services. Patient plans to use [facility] upon DC. Patient states family members will drive her to and from therapy. Patient's [id number]-znk lives next door and plans to assist when patient's spouse is working. Patient feels safe returning to previous environment. Patient denies being hospitalized within the past 30 days. 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 Transportation at time of discharge: Hamzah Tran (spouse) [phone]. CM will assist with any other DC needs/plans. DCPIA - Discharge Planning Initial Assessment Updated by [email or web address]: Rosario Beard on 08/13/19 2:10 pm * Is the patient Alert and Oriented? Yes * How many steps to enter\exit or inside your home? 5 w/rail * PCP Dr. lord * Pharmacy [facility]. * Preadmission Environment Home with Family * ADLs Independent * Equipment Bedside Commode * Other Equipment BSC, Walker, CPM * List name and contact numbers for known caregivers / representatives who currently or will assist patient after discharge: Hamzah tran (spouse) [phone] Janice Vinh (s-I-l) [phone] * Verbal permission to speak to the caregivers and representatives has been obtained from the patient. Yes * Community resources currently utilized None * Please name any agencies selected above. [facility] * Additional services required to return to the preadmission environment? Yes * Can the patient safely return to the preadmission environment? Yes * Has this patient been hospitalized within the prior 30 days at any hospital? No Coverage Notice Reviewer: [id number] - Rosario Beard Notice Issued Date-Time: 08/13/2019 17:11 Notice Type: Patient Choice Letter Notice Delivered To: Family Member Relationship to Patient: Spouse Painter Foreman Name: Hamzah Tran Delivery Method: HAND - Hand Delivered Jeanie Days: Prior Verbal Notification: Recipient Understood Notice: Yes Recipient Signature: Yes Med Rec Note Co-signed by Attending: Coverage Notice Comment: Patient Choice for [facility]. Appointment Tuesday 08/15 @0930. Last DP export: 08/13/19 4:17 pm Patient Name: YE TRAN Page [id number] at 1436 All edits/amendments must be made on the electronic document DICTATION DATE: 08/14/19 1436 KITCHEN CHEF: SATNAM 08/14/19 1436 RPT#: [id number] DC DATE: STATUS: ADM IN [facility] [address] [place] [address] END OF REPORT
[2019-08-14 19:26] VITALS: BP 132/61
--- NOTE | 2019-08-14 19:30 | NUR ---
REMOVED PATIENT FROM CPM AND ASSISTED HER TO THE RESTROOM. PATIENT VOIDED. ASSISTED PATIENT BACK TO BED AND PUT HER ON CPM TO RIGHT KNEE. PATIENT DENIES OTHER NEEDS AT THIS TIME. BED IN LOWEST POSITION AND CALL LIGHT WITHIN REACH. ENCOURAGED THE PATIENT TO CALL IF SHE HAS NEEDS. WILL CONTINUE TO MONITOR.
--- NOTE | 2019-08-14 21:04 | NUR ---
SPOKE WITH DR. CUEVA IN REGARDS TO PATIENT'S TEMP RISING TO 102.0. DR. CUEVA STATED TO ADMINISTER 500MG TYLENOL Q6HP AND FOR THE PATIENT TO BE USING IS.
--- NOTE | 2019-08-14 21:09 | NUR ---
REMOVED PATIENT FROM CPM. ADMINISTERED MEDS PER ORDERS INCLUDING TYLENOL FOR FEVER AND TORADOL FOR PAIN. PATIENT DENIES OTHER NEEDS AT THIS TIME. BED IN LOWEST POSITION AND CALL LIGHT WITHIN REACH. ENCOURAGED THE PATIENT TO CALL IF SHE HAS NEEDS. WILL CONTINUE TO MONITOR.
--- NOTE | 2019-08-14 22:24 | NUR ---
PATIENT RESTING IN BED WITH EYES CLOSED AND NO S/S OF DISTRESS. PATIENT'S AT BEDSIDE. WILL CONTINUE TO MONITOR.
--- NOTE | 2019-08-14 22:54 | NUR ---
PATIENT NAUSEATED AND VOMITING. ADMINISTERED ZOFRAN PER ORDERS.
[2019-08-15 00:35] VITALS: BP 130/68
[2019-08-15 05:22] VITALS: BP 145/69
--- NOTE | 2019-08-15 05:28 | NUR ---
PLACED PATIENT ON CPM TO RIGHT KNEE
--- NOTE | 2019-08-15 07:19 | NUR ---
PT REPORTING PAIN TOO INTENSE TO CONTINUE WITH CPM. REMOVED PER PT REQUEST. COMPLETED 1.5 HOURS.
[2019-08-15 07:52] LABS: HEMOGLOBIN 11.6 g/dL (12-16); MCH 29.4 pg (26.0-34.0); MCHC 32.2 g/dL (31.0-37.0); MCV 91.4 fL (80.0-100.0); MEAN PLATELET VOLUME 9.9 fL (7.4-10.4); RBC 3.94 10x6/uL (4.00-5.40); RDW 13.1 % (11.5-14.5); WBC 12.3 10x3/uL (4.8-10.8)
[2019-08-15] MEDS ORDERED: HYDROCODON-ACE1 EAC7 PO (08:52)
[2019-08-15] MEDS ORDERED: ZOFRAN ODT4 MG/UDTAB PO (08:52)
[2019-08-15] MEDS ORDERED: ELIQUIS2.5 MG PO (08:52)
[2019-08-15] MEDS ORDERED: VISTARIL50 MG PO (08:53)
--- NOTE | 2019-08-15 09:27 | NUR ---
PT ALERT X 4. BREATH SOUNDS CLEAR BILAT. IV TO LEFT HAND SALINE LOCKED DRESSING TO RIGHT KNEE CDI. AIDAN HOSE TO RIGHT, SCD'S BILAT. PT REPORTING PAIN OF 5/10, MEDICATED PER ORDERS WILL MONITOR. BED LOW, CALL LIGHT IN REACH. NO OTHER NEEDS AT THIS TIME.
--- NOTE | 2019-08-15 12:57 | NUR ---
DISCHARGE PAPERWORK SIGNED, ALL QUESTIONS ANSWERED. IV TO LEFT HAND DC'D, TIP INTACT. DRESSING TO RIGHT KNEE CHANGED PER ORDERS. ESCORTED OUT VIA WHEELCHAIR.
--- NOTE | 2019-08-15 13:04 | MORECARE ---
CASE MANAGEMENT DISCHARGE SUMMARY PATIENT: YE TRAN UNIT: [id number] ADM DATE: 08/13/19 AGE: 58 : 60 SEX: F ROOM/BED: D.1213 AUTHOR: TAVON,DOC PHYSICIAN: REFERRING PHYSICIAN: AGUSTINA CUEVA DO DATE OF SERVICE: 08/15/19 Discharge Plan Patient Name: YE TRAN Facility: [facility]:[place] : 1960 Planned Disposition: Outpatient PT\OT Anticipated Discharge Date: Discharge Date: 08/15/2019 Expected LOS: Initial Reviewer: [email or web address] Initial Review Date: 08/13/2019 Generated: 08/15/19 2:03 pm DCP- Discharge Planning Updated by [email or web address]: Rosario Beard on 08/13/19 4:[address] CM contacted Miranda with [facility], patient's appointment is Tuesday 08/15 @0930 am. Copy given to patient. DCP- Discharge Planning Updated by [email or web address]: Rosario Beard on 08/13/19 1:[address] CM met with patient to discuss initial discharge planning. Patient is in agreement to proceed with the assessment with family members present. Patient reports that she lives at home independently with her spouse. Patient is alert/oriented. Stairs/steps: 5 w/rails. PCP: Dr. Lord. Pharmacy: [facility]. Patient states she has been able to obtain all of her prescribed medications. HHS: No. DME: [facility], [place]. Patient gives permission to speak with family members/care givers. Emergency contact: Hamzah Tran (spouse) [phone]. 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 CM discussed the availability of HH, Rehab, DME services. Patient plans to use [facility] upon DC. Patient states family members will drive her to and from therapy. Patient's izpefd-iy-cpa lives next door and plans to assist when patient's spouse is working. Patient feels safe returning to previous environment. Patient denies being hospitalized within the past 30 days. 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 Transportation at time of discharge: Hamzah Tran (spouse) [phone]. CM will assist with any other DC needs/plans. DCPIA - Discharge Planning Initial Assessment Updated by [email or web address]: Rosario Beard on 08/13/19 2:10 pm * Is the patient Alert and Oriented? Yes * How many steps to enter\exit or inside your home? 5 w/rail * PCP Dr. lord * Pharmacy [facility]. * Preadmission Environment Home with Family * ADLs Independent * Equipment Bedside Commode * Other Equipment BSC, Walker, CPM * List name and contact numbers for known caregivers / representatives who currently or will assist patient after discharge: Hamzah tran (spouse) [phone] Janice Vinh (s-I-l) [phone] * Verbal permission to speak to the caregivers and representatives has been obtained from the patient. Yes * Community resources currently utilized None * Please name any agencies selected above. [facility] * Additional services required to return to the preadmission environment? Yes * Can the patient safely return to the preadmission environment? Yes * Has this patient been hospitalized within the prior 30 days at any hospital? No Coverage Notice Reviewer: [id number] - Rosario Beard Notice Issued Date-Time: 08/13/2019 17:11 Notice Type: Patient Choice Letter Notice Delivered To: Family Member Relationship to Patient: Spouse Negative Notcher Name: Hamzah Tran Delivery Method: HAND - Hand Delivered Jeanie Days: Prior Verbal Notification: Recipient Understood Notice: Yes Recipient Signature: Yes Med Rec Note Co-signed by Attending: Coverage Notice Comment: Patient Choice for [facility]. Appointment Tuesday 08/15 @0930. Last DP export: 08/14/19 1:36 pm Patient Name: YE TRAN Page [phone] at 1304 All edits/amendments must be made on the electronic document DICTATION DATE: 08/15/19 1303 FILM REPLACEMENT ORDERER: SATNAM 08/15/19 1303 RPT#: [id number] DC DATE:08/15/19 STATUS: DIS IN [facility] [address] [place] [address] END OF REPORT
== END 2019-08-15 12:58 | disposition home or self-care (01) | DRG 470 ==
LOC: D.SDCHOLD 08-07 10:00 → D.M3 08-13 06:35 → D.SDCHOLD 08-13 09:00 → D.M3 08-13 10:51
PROVIDERS: ADMIT Orthopaedic Surgery; ATTEND Orthopaedic Surgery
PROC: 0SRC0J9 Replacement of Right Knee Joint with Synthetic Substitute, Cemented, Open Approach (ICD-10-PCS; principal; 2019-08-13 09:00)
DX: M17.11 Unilateral primary osteoarthritis, right knee (principal); F41.9 Anxiety disorder, unspecified; G47.00 Insomnia, unspecified

== ENCOUNTER → 2019-08-08 09:11 | Outpatient (CLI) | payer MEDICARE, BC ==
[2017-12-27 21:53] VITALS: BMI 30.3
[~2019-08-08 09:11] MED LIST changes: +HYDROCODON-ACE1 EAC7 PO; +KLONOPIN1 MG PO; +TESSALON PERLE100 MG PO; +VOLTAREN100 GM TOPICAL; +XALATAN 0.0052.5 ML EACH EYE
== END | disposition home or self-care (01) ==
LOC: D.LABREF 09:11
PROVIDERS: ATTEND Orthopaedic Surgery
DX: M25.561 Pain in right knee (principal)

== ENCOUNTER → 2019-08-12 08:56 | Outpatient (CLI) | payer MEDICARE, BC ==
[2017-12-27 21:53] VITALS: BMI 30.3
[~2019-08-12 08:56] MED LIST changes: +CIPRO500 MG PO; +RESTORIL15 MG
[2019-08-12 09:48] LABS: BASOPHILS 0.5 % (0-2); EOSINOPHILS 4.1 % (0-7); HEMATOCRIT 41.6 % (36.0-48.0); HEMOGLOBIN 13.5 g/dL (12-16); IMMATURE GRANULOCYTES 0.5 % (0-5); LYMPHOCYTES 36.9 % (15-50); MCH 29.3 pg (26.0-34.0); MCHC 32.5 g/dL (31.0-37.0); MCV 90.4 fL (80.0-100.0); MEAN PLATELET VOLUME 9.9 fL (7.4-10.4); MONOCYTES 8.4 % (2-11); NEUTROPHILS 49.6 % (40-80); PLATELET COUNT 320 10x3/uL (130-400); RDW 13.1 % (11.5-14.5); WBC 6.1 10x3/uL (4.8-10.8)
== END | disposition home or self-care (01) ==
LOC: D.LAB 08:55
PROVIDERS: ATTEND Orthopaedic Surgery
DX: M25.562 Pain in left knee (principal)

== ENCOUNTER 2020-02-19 05:24 | Emergency (ER) | payer MEDICARE, BC ==
[~2020-02-19] VITALS: Ht 154.9 cm; Wt 75.0 kg
[~2020-02-19 05:24] MED LIST changes: +ELIQUIS2.5 MG PO; +VISTARIL50 MG PO; +ZOFRAN ODT4 MG/UDTAB PO
[2020-02-19 05:39] VITALS: Ht 154.9 cm; Wt 75.0 kg
[2020-02-19] MEDS ORDERED: LOPERAMIDE HCL2 MG PO (06:06)
[2020-02-19] MEDS ORDERED: ZOFRAN ODT4 MG/UDTAB PO (06:06)
[2020-02-19 06:29] LABS: BASOPHILS 0.3 % (0-2); EOSINOPHILS 2.7 % (0-7); HEMATOCRIT 42.3 % (36.0-48.0); HEMOGLOBIN 13.7 g/dL (12-16); IMMATURE GRANULOCYTES 0.3 % (0-5); LYMPHOCYTES 29.4 % (15-50); MCH 29.3 pg (26.0-34.0); MCHC 32.4 g/dL (31.0-37.0); MCV 90.6 fL (80.0-100.0); MEAN PLATELET VOLUME 10.2 fL (7.4-10.4); MONOCYTES 7.7 % (2-11); NEUTROPHILS 59.6 % (40-80); PLATELET COUNT 294 10x3/uL (130-400); RBC 4.67 10x6/uL (4.00-5.40); RDW 13.5 % (11.5-14.5); WBC 6.4 10x3/uL (4.8-10.8)
[2020-02-19 06:30] LABS: CALC OSMOLALITY 286 mosm/kg (275-300); CALCIUM 8.8 mg/dL (8.5-10.1); CARBON DIOXIDE 28.1 mmol/L (21.0-32.0); CHLORIDE - SERUM 107 mmol/L (98-107); CREATININE - SERUM 0.9 mg/dL (0.6-1.3); GLUCOSE 99 mg/dL (74-106); SODIUM 143 mmol/L (136-145); UREA NITROGEN 17 mg/dL (7-18); eGFR NON AFRICAN AMERICAN 68 mL/min (90-120)
[2020-02-19 06:32] LABS: BILIRUBIN NEGATIVE (NEGATIVE); KETONE NEGATIVE (NEGATIVE); NITRITE NEGATIVE (NEGATIVE); UROBILINOGEN NORMAL (NORMAL)
[2020-02-19 06:34] LABS: BACTERIA FEW /hpf (NONE SEEN); EPITHELIAL CELLS 0-5 /hpf (0-5)
[2020-02-19 06:39] LABS: ALBUMIN 3.7 g/dL (3.4-5.0); ALKALINE PHOSPHATASE 110 U/L (30-120); ALT (SGPT) 38 U/L (10-68); BILIRUBIN - TOTAL 0.49 mg/dL (0.2-1.3); C-REACTIVE PROTEIN 0.7 mg/dL (0.0-0.9); LIPASE 220 U/L (73-393); PROTEIN - SERUM 7.1 g/dL (6.4-8.2)
[2020-02-19 06:40] LABS: TROPONIN-I < 0.017 ng/mL (0.000-0.060)
[2020-02-19 06:41] LABS: POTASSIUM - SERUM 4.5 mmol/L (3.5-5.1)
[2020-02-19 06:55] VITALS: BP 144/73
== END 2020-02-19 06:53 | disposition home or self-care (01) ==
LOC: D.ER 05:24
PROVIDERS: Family Medicine
DX: R11.2 Nausea with vomiting, unspecified (principal); R19.7 Diarrhea, unspecified; R07.9 Chest pain, unspecified